=== PATIENT | female | born 2005 | race Caucasian/White ===

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

== ENCOUNTER 2024-01-29 02:05 | Outpatient (CLI) | payer MEDICAID, SELFPAY ==
--- NOTE | 2024-01-29 07:30 | DI.US_ITS ---
Exam(s) US OB 2-3 TRIMESTER EXAM: US OB 2-3 TRIMESTER CLINICAL HISTORY: survey,z34.90. TECHNIQUE: Transabdominal obstetrical ultrasound was performed. COMPARISON: US POCUS EXAM from 10/09/2023 FINDINGS: There is a single viable intrauterine gestation with cardiac activity identified-145 bpm. Amniotic fluid: There is a normal amount of amniotic fluid. Placental location: The placenta is anterior grade 1,with no evidence of placenta previa.Two distance from tip of placenta to the internal cervical os is 11.4 cm size. Distance from cord insertion to the margin of the placenta is 5.3 cm ANATOMY: A 3 vessel umbilical cord is seen. A four-chamber cardiac view was obtained. Right and left ventricular outflow tracts were imaged. There are no obvious abnormalities of the spinal column evident. There is no obvious abnormal ity of the anterior abdominal wall. stomach and urinary bladder are identified and there is no evidence of hydronephrosis. No abnormalities of the upper lip region are identified. No evidence of choroid plexus cysts i n the brain. Dating parameters place this at approximately 23 weeks and 6 days gestational age. BPD measures 24 weeks and 0 days HC measures 23 weeks and 5 days AC measures 24 weeks and 0 days FL measures 23 weeks and 4 days Estimated weight is 633 gm-1 pound, 6 ounces Fetus is at the 69th percentile on the Hadlock scale. IMPRESSION:: Single viable intrauterine gestation which is approximately 23 weeks and 6 days gestati onal age, implying an JEANCARLOS of 05/21/2024. There are no obvious anomalies evident on today's study. The placenta is predominately anterior with no evidence of placenta previa. There is a normal amount of amniotic fluid. DATA REPOSITORY:
== END 2024-01-29 02:25 ==
LOC: DI 02:05
PROVIDERS: PCP Nurse Practitioner Pediatrics; Visit Provider Advanced Practice Midwife
DX: Z34.92 Encounter for supervision of normal pregnancy, unspecified, second trimester (principal); Z3A.24 24 weeks gestation of pregnancy
CPT/HCPCS: 76805

== ENCOUNTER 2024-02-19 20:49 | Observation (INO) | payer MEDICAID, SELFPAY ==
[2024-02-19 21:10] VITALS: BP 109/56; PULSE 76; RESP 16; TEMP 36.6; O2SAT 97
[2024-02-19 21:32] LABS: Bilirubin Negative (Negative); Blood Negative (Negative); Clarity Sl Cloudy (Clear); Glucose Negative (Negative); Ketones Negative (Negative); Leukocyte Esterase Trace (Negative); Nitrite Negative (Negative); Specific Gravity 1.025 (1.005-1.025); Urobilinogen 0.2 mg/dL (Up to 0.2)
[2024-02-19 21:37] LABS: RBC Negative HPF (0-2)
[2024-02-19 21:38] LABS: Bacteria Moderate HPF (Negative); C & S Indicated? No; Casts Negative LPF (Negative); Crystals Many Amorphous HPF (Negative); Epithelial Cells Few HPF (Negative); Mucus Trace (Negative)
[2024-02-19] MEDS: Ondansetron O.D.T. 4 MG TABEF PO (22:09)
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
== END 2024-02-19 22:20 | disposition home or self-care (01) ==
LOC: OBS 20:50
PROVIDERS: Admitting Provider Obstetrics & Gynecology Gynecology; PCP Nurse Practitioner Pediatrics; Visit Provider Obstetrics & Gynecology Gynecology
DX: O99.891 Other specified diseases and conditions complicating pregnancy (principal); M54.9 Dorsalgia, unspecified; R10.9 Unspecified abdominal pain; Z3A.26 26 weeks gestation of pregnancy; O99.343 Other mental disorders complicating pregnancy, third trimester; F41.8 Other specified anxiety disorders; O99.613 Diseases of the digestive system complicating pregnancy, third trimester; O34.211 Maternal care for low transverse scar from previous cesarean delivery; N85.8 Other specified noninflammatory disorders of uterus; F43.10 Post-traumatic stress disorder, unspecified; O99.333 Smoking (tobacco) complicating pregnancy, third trimester; F17.290 Nicotine dependence, other tobacco product, uncomplicated; K59.00 Constipation, unspecified; F51.5 Nightmare disorder; G47.00 Insomnia, unspecified
CPT/HCPCS: 59025; 81003; 81015

== ENCOUNTER 2024-02-21 11:13 | Outpatient (CLI) | payer MEDICAID, SELFPAY ==
--- NOTE | 2024-02-21 09:03 | DI.US_ITS ---
Exam(s) US RENAL EXAM: US RENAL CLINICAL HISTORY: 25w with flank pain in , O99.891,. TECHNIQUE: Brown scale, color and spectral Doppler were used. COMPARISON: No exams were available for comparison FINDINGS: Renal size in cm: Right: 12.3. Left: 11.4. Echogenicity: Normal. Hydronephrosis: No. Cyst or mass: No. Nephrolithiasis: No. Other findings: None. Bladder:Normal. Ureteral jets: Right: Not visualized on this examination. Left: Visualized and unremarkable. Prevoid vol:54 cc Postvoid vol:0 cc Renal color flow: Symmetric and within normal limits. IMPRESSION: No evidence of hydronephrosis or nephrolithiasis. DATA REPOSITORY:
== END 2024-02-21 11:33 ==
LOC: DI 11:13
PROVIDERS: PCP Nurse Practitioner Pediatrics; Visit Provider Obstetrics & Gynecology Gynecology
DX: O99.891 Other specified diseases and conditions complicating pregnancy (principal); Z3A.25 25 weeks gestation of pregnancy
CPT/HCPCS: 76770

== ENCOUNTER 2024-02-24 16:03 | Outpatient (CLI) | payer MEDICAID, SELFPAY ==
[2024-02-24 16:44] VITALS: BP 107/56; PULSE 64; RESP 18; TEMP 36.7; O2SAT 99
[2024-02-24 16:46] VITALS: BP 107/56; PULSE 64
[2024-02-24 16:47] VITALS: PULSE 78
[2024-02-24] MEDS: HYDROcodone 5/Acetaminophen 325 TAB PO (17:37)
[2024-02-24] MEDS: Ondansetron O.D.T. 4 MG TABEF PO (17:37)
--- NOTE | 2024-02-25 10:12 | W.OBNST ---
Date of service: 02/24/24 Time of Service: 10:36 NST Evaluation Reason for NST Reasons for Nonstress Test: OTHER, SEE COMMENT (maternal discomfort) Reason for NST Other: maternal discomfort Gestational Age Gestational Age in Weeks and Days: 27 Weeks and 0Days Test and Monitor Explained Test/Monitor Explained: Test Explained, Monitor Explained and Patient Verbalized Understanding Vital Signs Pulse: 78 NST Information Date on Monitor: 02/24/24 Time on Monitor: 17:00 Date off Monitor: 02/24/24 Time off Monitor: 17:50 Total Time on Monitor: 50 NST Interventions: None Contraction Frequency: rare. Comments: Pt placed on monitor to assess HR. NST Evaluation NST Results Other: 2nd trimester assessment of FHR. Viable fetus. Note Ultrasound Done: N/A. NST Note Note: Pt presented to with worsening of preexisting lumbar pain. Lying semifowler's position in bed tearful reporting constant throbbing pain. When examined in L lateral position tenderness to light touch L1-L4 along paraspinous muscles and SI joint. LE movement and strength equal 4/5. No erythema or masses. No focal suprapubic pain. Pt was more comfortable while on L or R lateral position. Pt reports that 5/325mg dose of hydrocodone given at previous BC visit allowed her to sleep. Still working at [employer] despite pain. I have given pt work excuse for 72hrs, Rx for Hydrocodone 5/325mg #30, placed an order for PT evaluation and for MRI of lumbar region. Pt has access to lidocaine 5% patches which she will use. NST Reviewed and Verified by: Tamia Casarez
[2024-02-25 10:42] VITALS: PULSE 78
== END 2024-02-24 17:45 ==
LOC: BCD 16:05 → OBS 16:31
PROVIDERS: PCP Nurse Practitioner Pediatrics; Visit Provider Obstetrics & Gynecology Gynecology
DX: O26.892 Other specified pregnancy related conditions, second trimester (principal); M54.50 Low back pain, unspecified; Z3A.27 27 weeks gestation of pregnancy
CPT/HCPCS: 59025

== ENCOUNTER 2024-02-28 00:41 | Outpatient (CLI) | payer MEDICAID, SELFPAY ==
--- NOTE | 2024-02-28 07:30 | DI.MRI_ITS ---
Exam(s) MR LUMBAR SPINE WO EXAM: MR LUMBAR SPINE WO CLINICAL HISTORY: 27w IUP,debiliitating back pain,flank pain,m54.9,abd pain,r10.9,O99.891. TECHNIQUE: Multiplanar multisequence MRI of the Lumbar spine was performed. COMPARISON: CT CT ABDOMEN PELVIS WO from 03/24/2022 FINDINGS: The patient is . The is not wholly included on this examination.. Bones: The last intervertebral disc space is designated the L5/S1 level for the numbering purpose of this examination. The vertebral body heights are well maintained. Alignment is satisfactory. There is disc desiccation at L4-5. Cord: The conus tip ends at the T12 level. It is of normal size and signal intensity. T12-L1: No disc herniations or bulges are present. No central spinal canal or neural foraminal stenos is. L1-2: No disc herniations or bulges are present. No central spinal canal or neural foraminal stenosis . L2-3: No disc herniations or bulges are present. No central spinal canal or neural foraminal stenosis . L3-4: No disc herniations or bulges are present. No central spinal canal or neural foraminal stenosis . L4-5: There is a mild diffuse disc bulge. No central spinal canal or neural foraminal stenosis. L5-S1: No disc herniations or bulges are present. No central spinal canal or neural foraminal stenosi s. Soft tissues: The visualized SI joints and sacrum are well maintained. The paraspinal soft tissues ar e unremarkable. IMPRESSION: 1. No evidence of significant spinal stenosis or neuroforaminal narrowing. 2. Disc desiccation and a small diffuse disc bulge at L4-L5. No significant central spinal canal or nerve root compression results. 3. The patient's is not wholly included on this examination. DATA REPOSITORY:
== END 2024-02-28 01:01 ==
LOC: DI 00:41
PROVIDERS: PCP Nurse Practitioner Pediatrics; Visit Provider Obstetrics & Gynecology Gynecology
DX: O99.891 Other specified diseases and conditions complicating pregnancy (principal); M54.9 Dorsalgia, unspecified; Z3A.27 27 weeks gestation of pregnancy
CPT/HCPCS: 72148

== ENCOUNTER 2024-03-11 11:20 | Outpatient (REF) | payer MEDICAID, SELFPAY ==
[2024-03-11 12:22] LABS: *AMPHETAMINES SCREEN URINE Negative (Negative); *BARBITURATES SCREEN URINE Negative (Negative); *BENZODIAZEPINES SCREEN URINE Negative (Negative); Cannabinoids THC Positive (Negative); Cocaine Screen,Urine Negative (Negative); METHADONE URINE SCREEN Negative (Negative); OPIATES URINE SCREEN Negative (Negative)
[2024-03-11 12:31] LABS: Tricyclic Antidepressants Negative (Negative)
[2024-03-16 09:58] LABS: Fentanyl Scr w/Rfx Confirm Negative ng/mL (<1)
[2024-03-18 07:51] LABS: Buprenorphine Negative ng/mL (Cutoff: 5.0)
== END 2024-03-11 11:21 | disposition home or self-care (01) ==
LOC: LBN 11:20
PROVIDERS: PCP Nurse Practitioner Pediatrics; Visit Provider Obstetrics & Gynecology
DX: Z34.93 Encounter for supervision of normal pregnancy, unspecified, third trimester (principal); Z3A.29 29 weeks gestation of pregnancy
CPT/HCPCS: 80307; 80348

== ENCOUNTER 2024-03-29 07:34 | Outpatient (CLI) | payer MEDICAID, SELFPAY ==
[2024-03-29 07:56] VITALS: BP 97/53; PULSE 77; TEMP 36.8
[2024-03-29 07:58] VITALS: BP 97/53; PULSE 77
--- NOTE | 2024-03-30 12:07 | W.OBNST ---
Date of service: 03/29/24 Time of Service: 12:08 NST Evaluation Reason for NST Reasons for Nonstress Test: DECREASED MOVEMENT and OTHER, SEE COMMENT Reason for NST Other: Spotting Gestational Age Gestational Age in Weeks and Days: 31 Weeks and 6Days Test and Monitor Explained Test/Monitor Explained: Test Explained Vital Signs Blood Pressure: 97/53 Pulse: 77 Temperature: 98.2 F Urine Results Urine Protein: Positive Urine Ketones: Negative Urine Glucose: Negative Urine Blood: Positive NST Information Date on Monitor: 03/29/24 Time on Monitor: 07:49 Date off Monitor: 03/29/24 Time off Monitor: 08:50 Total Time on Monitor: 61 NST Interventions: PO Hydration Contraction Frequency: none NST Evaluation Patient States Movement: Present FHR Baseline: 130 Variability: Moderate 6-25 bpm Accelerations: 15x15 Decelerations: None NST Results: Reactive Note Ultrasound Done: N/A. NST Note Note: Category 1, reactive NST NST Reviewed and Verified by: Sherlyn Kunz
[2024-03-30 12:08] VITALS: BP 97/53; PULSE 77; TEMP 36.8
== END 2024-03-29 08:57 ==
LOC: BCD 07:39 → OBS 07:52
PROVIDERS: PCP Nurse Practitioner Pediatrics; Visit Provider Obstetrics & Gynecology
DX: O36.8130 Decreased fetal movements, third trimester, not applicable or unspecified (principal); Z3A.31 31 weeks gestation of pregnancy
CPT/HCPCS: 59025; G0378

== ENCOUNTER 2024-05-01 07:05 | Outpatient (CLI) | payer MEDICAID, SELFPAY ==
[2024-05-01 11:27] VITALS: BP 105/56; PULSE 75; TEMP 36.9
[2024-05-01 11:34] VITALS: BP 105/56; PULSE 75
--- NOTE | 2024-05-01 12:22 | PDOC.NST_ITS ---
Date of service: 05/01/24 Time of Service: 12:22 NST Evaluation Reason for NST Reasons for Nonstress Test: OTHER, SEE COMMENT (Limited labs and surveillance) Reason for NST Other: High Risk Gestational Age Gestational Age in Weeks and Days: 36 Weeks and 4Days Test and Monitor Explained Test/Monitor Explained: Test Explained and Monitor Explained Vital Signs Blood Pressure: 105/56 Pulse: 75 Temperature: 98.4 F Urine Results Urine Protein: Negative Urine Ketones: Negative Urine Glucose: Negative Urine Blood: Negative NST Information Date on Monitor: 05/01/24 Time on Monitor: 11:31 Date off Monitor: 05/01/24 Time off Monitor: 12:05 Total Time on Monitor: 34 NST Interventions: PO Hydration NST Evaluation Patient States Movement: Present FHR Baseline: 130 Variability: Moderate 6-25 bpm Accelerations: 15x15 Decelerations: None NST Results: Reactive Note Ultrasound Done: N/A. NST Note Note: Pt seen on for discussion regarding plan for delivery. Pt reports plans for an appointment at [facility] on 05/05/24 with Anesthesia to discuss her anesthesia needs at time of repeat delivery. [facility] Pt met with Nicky Pineda CRNA to discuss the reasons why delivery at [facility] is the recommendation by the [facility] anesthesia providers. Pt states that she understands the need for her to deliver in a tertiary care center and if she presents in early labor to we will make every effort to transfer care to [facility]. If she cannot be transported to [facility] then she will have her repeat c/s at [facility] with every attempt made to respect her wish not to be conscious when an IV is placed. Advanced directives were presented to pt today and signed by Tania prior to her departure home. NST Reviewed and Verified by: Tamia Casarez
[2024-05-01 12:24] VITALS: BP 105/56; PULSE 75; TEMP 36.9
== END 2024-05-01 13:05 ==
LOC: BCD 07:05 → OBS 11:25
PROVIDERS: PCP Nurse Practitioner Pediatrics; Visit Provider Obstetrics & Gynecology
DX: O34.219 Maternal care for unspecified type scar from previous cesarean delivery (principal); O09.93 Supervision of high risk pregnancy, unspecified, third trimester; Z3A.36 36 weeks gestation of pregnancy
CPT/HCPCS: 59025

== ENCOUNTER 2024-05-07 08:59 | Outpatient (CLI) | payer MEDICAID, SELFPAY ==
[2024-05-07 12:00] VITALS: BP 122/60; PULSE 101
[2024-05-07 12:08] VITALS: BP 122/60; PULSE 101; TEMP 36.7
--- NOTE | 2024-05-07 14:58 | W.OBNST ---
Date of service: 05/07/24 Time of Service: 14:58 NST Evaluation Reason for NST Reasons for Nonstress Test: OTHER, SEE COMMENT Reason for NST Other: Limited testing Gestational Age Gestational Age in Weeks and Days: 37 Weeks and 3Days Test and Monitor Explained Test/Monitor Explained: Test Explained, Monitor Explained and Patient Verbalized Understanding Vital Signs Blood Pressure: 122/60 Pulse: 101 Temperature: 98.1 F Urine Results Urine Protein: Negative Urine Ketones: Negative Urine Glucose: Negative Urine Blood: Negative NST Information Date on Monitor: 05/07/24 Time on Monitor: 11:58 Date off Monitor: 05/07/24 Time off Monitor: 12:32 Total Time on Monitor: 34 NST Interventions: PO Hydration and Notify Provider Contraction Frequency: Occasional NST Evaluation Patient States Movement: Present FHR Baseline: 140 Variability: Moderate 6-25 bpm Accelerations: 15x15 Decelerations: Variable NST Results: Reactive Note Ultrasound Done: N/A. NST Note Note: Patient seen on the center today for surveillance. She has a complex history and that she has a significant needle phobia. She also has had a previous delivery with a short intra conceptual period. She has had a consultation at [facility] who has a scheduled delivery time of 05/18/2024. The confounding factor, is that she has had no blood work. Today, we had a conversation regarding the need to attempt to obtain a platelet count. She was offered both blood draw which she adamantly refused and a fingerstick which could be sent to the lab. She states that she would consider this, though she would need to have a driver utility worker and is unable to do that today. She in the past, has had attempts at fingerstick blood draw which caused her to be nauseated, and near syncopal. Again, we discussed symptoms of labor, mode of delivery, location of delivery. Will continue to do surveillance and encourage her to consider attempt at blood sampling. All questions were answered to the best of my ability today. NST Reviewed and Verified by: Sherlyn Kunz
[2024-05-07 15:00] VITALS: BP 122/60; PULSE 101; TEMP 36.7
== END 2024-05-07 12:40 ==
LOC: BCD 09:00 → OBS 11:57
PROVIDERS: PCP Nurse Practitioner Pediatrics; Visit Provider Obstetrics & Gynecology
DX: O09.893 Supervision of other high risk pregnancies, third trimester (principal); O34.219 Maternal care for unspecified type scar from previous cesarean delivery; Z3A.37 37 weeks gestation of pregnancy
CPT/HCPCS: 59025

== ENCOUNTER 2024-10-27 22:23 | Emergency (ER) | payer MEDICAID, SELFPAY ==
[2024-10-27 22:31] VITALS: BP 104/62; PULSE 78; RESP 18; TEMP 36.4; O2SAT 98
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
[2024-10-27] MEDS: Ibuprofen 600 MG TAB PO (22:55)
[2024-10-27] MEDS: Benzocaine 20% Gel 30 GM JAR MM (22:55)
== END 2024-10-27 23:27 | disposition home or self-care (01) ==
PROVIDERS: Emergency Provider Emergency Medicine; PCP Nurse Practitioner Pediatrics
DX: K08.89 Other specified disorders of teeth and supporting structures (principal)
CPT/HCPCS: 99283

== ENCOUNTER 2025-02-18 07:15 | Emergency (ER) | payer MEDICAID, SELFPAY ==
[2025-02-18 07:24] VITALS: BP 119/59; PULSE 101; RESP 16; TEMP 37.1; O2SAT 98
[2025-02-18 07:31] VITALS: BP 119/59; PULSE 101; RESP 16; TEMP 37.1; O2SAT 98
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
[2025-02-18] MEDS: Dexamethasone 4 MG TAB 12 MG PO (08:13)
[2025-02-18] MEDS: Acetaminophen 500 MG TAB 1000 MG PO (08:13)
[2025-02-18] MEDS: Ibuprofen 800 MG TAB PO (08:14)
[2025-02-18] MEDS: Amox. 875/Clav. 125, 2 TABS/BTL 1 TAB PO (08:14)
[2025-02-18 08:28] LABS: COVID-19 PCR Negative (Negative); RSV PCR Negative (Negative)
== END 2025-02-18 08:17 | disposition home or self-care (01) ==
LOC: ER 08:29
PROVIDERS: Emergency Provider Student in an Organized Health Care Education/Training Program; PCP Pediatrics
DX: J02.0 Streptococcal pharyngitis (principal); H66.91 Otitis media, unspecified, right ear
CPT/HCPCS: 99284; 99283; 87880; 87637; J8540